=== PATIENT | male | born 1950 | race Caucasian/White ===

== ENCOUNTER → 2018-10-17 | Outpatient (CLI) | payer MEDICARE ==
[~2018-10-17] MED LIST: ASPI81CH PO; Atarax10 MG PO; EZET10; FENO160 PO; FENO48 PO; HYDCHL25; LISHYD2012; METF500 PO; OXYACE5T PO; PRED20 PO; Pravastatin Sod80 MG PO; Sodium Chlorid250 M1 IV
== END | disposition home or self-care (01) ==
LOC: LAB SHORT 07:14 → PLD 07:14
DX: C96.9 Malignant neoplasm of lymphoid, hematopoietic and related tissue, unspecified (principal)
CPT/HCPCS: 88173

== ENCOUNTER 2018-11-08 10:01 | Day surgery (SDC) | payer MEDICARE ==
[~2018-11-08] VITALS: Ht 177.8 cm; Wt 85.7 kg
[~2018-11-08 10:01] MED LIST changes: -ASPI81CH PO; -Atarax10 MG PO; -FENO160 PO; -FENO48 PO; -METF500 PO; -Pravastatin Sod80 MG PO; -Sodium Chlorid250 M1 IV
[2018-11-08] MEDS ORDERED: FENO48 PO (10:33)
[2018-11-08] MEDS ORDERED: METF500 PO (10:33)
[2018-11-08] MEDS ORDERED: FENO160 PO (10:34)
[2018-11-08] MEDS ORDERED: Pravastatin Sod80 MG PO (10:34)
[2018-11-08] MEDS ORDERED: Atarax10 MG PO (10:35)
--- NOTE | 2018-11-08 13:11 | NUR ---
11/08/18 1311 Virgen [place] C/O 01/17 THROAT PAIN, TAKING SIPS ICE WATER, VOICE CLEAR, RESP UNLABORED, MED C FENTANYL 25 MCG IV. FAMILY AT BEDSIDE
== END 2018-11-08 13:45 | disposition home or self-care (01) ==
LOC: ORSCSDS 10:01
PROVIDERS: Otolaryngology
PROC: 0CBM8ZX Excision of Pharynx, Via Natural or Artificial Opening Endoscopic, Diagnostic (ICD-10-PCS; principal; 2018-11-08 11:15)
DX: C01 Malignant neoplasm of base of tongue (principal); I10 Essential (primary) hypertension; E11.9 Type 2 diabetes mellitus without complications; J44.9 Chronic obstructive pulmonary disease, unspecified; F17.210 Nicotine dependence, cigarettes, uncomplicated; Z79.899 Other long term (current) drug therapy; Z79.82 Long term (current) use of aspirin
CPT/HCPCS: 82947; 88305; 88342; J0171; J1100; J2001; J2250; J2405; J2704; J2710; J3010; J7120

== ENCOUNTER 2018-11-20 06:06 | Day surgery (SDC) | payer MEDICARE ==
[~2018-11-20] VITALS: Ht 177 cm; Wt 84.2 kg
[~2018-11-20 06:06] MED LIST changes: +Atarax10 MG PO; +FENO160 PO; +FENO48 PO; +METF500 PO; +Pravastatin Sod80 MG PO
[2018-11-20] MEDS ORDERED: ASPI81CH PO (06:29)
--- NOTE | 2018-11-20 07:12 | NUR ---
Ambulatory in Day Surgery History, Chart, Medications and Allergies reviewed before start of procedure.Patient confirms NPO status and agrees with scheduled surgery. Surgical site prepped with 2% Chlorhexidine cloth wipe.
--- NOTE | 2018-11-20 07:46 | NUR ---
11/20/[address] HERE TO PROVIDE ANESTHESIA CARE, PLEASE SEE ANESTHESIA RECORD FOR DETAILS. History, Chart, Medications and Allergies reviewed before start of procedure. MONITOR INTACT WITH CONTINUOUS PULSE OXIMETRY AND INTERMITTENT BP. O2 VIA POM INTACT THROUGHOUT SEDATION/PROCEDURE AT [address] FINLEY, END TIDAL CO2 INTACT THROUGHOUT. PER DR FINLEY WE WILL DO A 4% LIDOCAINE NEBULIZER PREPROCEDURALLY.
== END 2018-11-20 23:31 | disposition home or self-care (01) ==
LOC: ORSCMMR 06:06 → ORD 08:45 → ORSCMMR 08:45
PROVIDERS: Surgery
PROC: 0DH63UZ Insertion of Feeding Device into Stomach, Percutaneous Approach (ICD-10-PCS; principal; 2018-11-20 07:30)
DX: C01 Malignant neoplasm of base of tongue (principal); R59.0 Localized enlarged lymph nodes; K21.9 Gastro-esophageal reflux disease without esophagitis; I10 Essential (primary) hypertension; E11.9 Type 2 diabetes mellitus without complications; E78.5 Hyperlipidemia, unspecified; Z79.899 Other long term (current) drug therapy; Z79.82 Long term (current) use of aspirin; F17.210 Nicotine dependence, cigarettes, uncomplicated
CPT/HCPCS: 82947; C1769; J0690; J2704; J3010; J7120

== ENCOUNTER 2019-01-04 01:14 | Day surgery (SDC) | payer MEDICARE ==
[~2019-01-04 01:14] MED LIST changes: +ASPI81CH PO
== END 2019-01-04 18:24 | disposition home or self-care (01) ==
LOC: ATC 01:14
DX: C01 Malignant neoplasm of base of tongue (principal); C77.0 Secondary and unspecified malignant neoplasm of lymph nodes of head, face and neck; I10 Essential (primary) hypertension; K21.9 Gastro-esophageal reflux disease without esophagitis; Z79.899 Other long term (current) drug therapy; Z79.84 Long term (current) use of oral hypoglycemic drugs; Z79.82 Long term (current) use of aspirin; Z87.891 Personal history of nicotine dependence
CPT/HCPCS: 96360; J7030

== ENCOUNTER 2019-01-05 14:54 | Day surgery (SDC) | payer MEDICARE | END 2019-01-05 16:07 | disposition home or self-care (01) | LOC: ATC 14:54 | DX: C01 Malignant neoplasm of base of tongue (principal); C77.0 Secondary and unspecified malignant neoplasm of lymph nodes of head, face and neck; I10 Essential (primary) hypertension; K21.9 Gastro-esophageal reflux disease without esophagitis; Z79.899 Other long term (current) drug therapy; Z79.82 Long term (current) use of aspirin | CPT/HCPCS: 96360; J7030 ==

== ENCOUNTER 2019-01-11 00:32 | Day surgery (SDC) | payer MEDICARE | END 2019-01-11 11:40 | disposition home or self-care (01) | LOC: ATC 00:32 | DX: E86.0 Dehydration (principal); C01 Malignant neoplasm of base of tongue; C77.0 Secondary and unspecified malignant neoplasm of lymph nodes of head, face and neck; I10 Essential (primary) hypertension; K21.9 Gastro-esophageal reflux disease without esophagitis; E78.00 Pure hypercholesterolemia, unspecified; Z87.891 Personal history of nicotine dependence; Z79.899 Other long term (current) drug therapy; Z79.84 Long term (current) use of oral hypoglycemic drugs; Z79.82 Long term (current) use of aspirin | CPT/HCPCS: 96360; J7030 ==

== ENCOUNTER 2019-01-13 08:20 | Day surgery (SDC) | payer MEDICARE ==
[2019-01-13] MEDS ORDERED: Sodium Chlorid250 M1 IV (10:37)
== END 2019-01-13 22:37 | disposition home or self-care (01) ==
LOC: ATC 08:20
DX: E86.0 Dehydration (principal); C01 Malignant neoplasm of base of tongue; C77.0 Secondary and unspecified malignant neoplasm of lymph nodes of head, face and neck; I10 Essential (primary) hypertension; K21.9 Gastro-esophageal reflux disease without esophagitis; Z87.891 Personal history of nicotine dependence; Z79.899 Other long term (current) drug therapy; Z79.82 Long term (current) use of aspirin; Z79.84 Long term (current) use of oral hypoglycemic drugs
CPT/HCPCS: 96360; J7030

== ENCOUNTER → 2019-01-15 | Outpatient (CLI) | payer MEDICARE ==
[~2019-01-15] MED LIST changes: +Sodium Chlorid250 M1 IV
[2019-01-15 09:27] LABS: Appearance, Urine Clear (Clear); Bilirubin, Urine Neg (Neg); Blood, Urine Neg (Neg); Color, Urine Yellow (P-Yellow); Glucose Qualitative, Urine 1+ (Neg); Ketones, Urine Neg (Neg); Leukocyte Esterase, Urine 1+ (Neg); Nitrite, Urine Neg (Neg); Protein, Urine 2+ (Neg); Urobilinogen, Urine NORM (Normal)
[2019-01-15 09:39] LABS: Red Blood Cells, Urine 0-2 /hpf (0-2)
[2019-01-15 09:40] LABS: Bacteria Rare /hpf; Squamous Epithelial Cells Rare /hpf (Few)
== END | disposition home or self-care (01) ==
LOC: LAB SHORT 08:52 → LAB 08:52
PROVIDERS: Radiology Therapeutic Radiology
DX: R30.0 Dysuria (principal)
CPT/HCPCS: 81001; 87086

== ENCOUNTER 2019-01-18 00:29 | Day surgery (SDC) | payer MEDICARE | END 2019-01-18 10:01 | disposition home or self-care (01) | LOC: ATC 00:29 | DX: C01 Malignant neoplasm of base of tongue (principal); C77.0 Secondary and unspecified malignant neoplasm of lymph nodes of head, face and neck; I10 Essential (primary) hypertension; E78.00 Pure hypercholesterolemia, unspecified; K21.9 Gastro-esophageal reflux disease without esophagitis; E86.0 Dehydration; Z79.899 Other long term (current) drug therapy; Z79.82 Long term (current) use of aspirin; Z79.84 Long term (current) use of oral hypoglycemic drugs; Z87.891 Personal history of nicotine dependence | CPT/HCPCS: 96360; J7030 ==

== ENCOUNTER 2019-01-20 09:54 | Day surgery (SDC) | payer MEDICARE ==
--- NOTE | 2019-01-20 11:49 | NUR ---
Pt requests to keep PIV in place. He has an appointment at the cancer center tomorrow for IV hydration. Wrapped with gauze and coban. [place] end caps applied x 2.
== END 2019-01-20 11:28 | disposition home or self-care (01) ==
LOC: ATC 09:54
DX: C01 Malignant neoplasm of base of tongue (principal); C77.0 Secondary and unspecified malignant neoplasm of lymph nodes of head, face and neck; I10 Essential (primary) hypertension; E78.00 Pure hypercholesterolemia, unspecified; K21.9 Gastro-esophageal reflux disease without esophagitis; Z87.891 Personal history of nicotine dependence
CPT/HCPCS: 96360; J7030

== ENCOUNTER 2019-01-25 01:05 | Day surgery (SDC) | payer MEDICARE | END 2019-01-25 14:50 | disposition home or self-care (01) | LOC: ATC 01:05 | DX: C01 Malignant neoplasm of base of tongue (principal); C77.0 Secondary and unspecified malignant neoplasm of lymph nodes of head, face and neck; I10 Essential (primary) hypertension; E78.00 Pure hypercholesterolemia, unspecified; K21.9 Gastro-esophageal reflux disease without esophagitis; Z87.891 Personal history of nicotine dependence; Z79.899 Other long term (current) drug therapy | CPT/HCPCS: 96360; J7030 ==

== ENCOUNTER 2019-01-27 13:25 | Day surgery (SDC) | payer MEDICARE | END 2019-01-27 14:42 | disposition home or self-care (01) | LOC: ATC 13:25 | DX: C01 Malignant neoplasm of base of tongue (principal); C77.0 Secondary and unspecified malignant neoplasm of lymph nodes of head, face and neck; I10 Essential (primary) hypertension; K21.9 Gastro-esophageal reflux disease without esophagitis; Z87.891 Personal history of nicotine dependence; Z79.899 Other long term (current) drug therapy; Z79.82 Long term (current) use of aspirin; Z79.84 Long term (current) use of oral hypoglycemic drugs | CPT/HCPCS: 96360; J7030 ==

== ENCOUNTER 2019-02-01 00:25 | Day surgery (SDC) | payer MEDICARE | END 2019-02-01 12:05 | disposition home or self-care (01) | LOC: ATC 00:25 | DX: E86.0 Dehydration (principal); C01 Malignant neoplasm of base of tongue; C77.0 Secondary and unspecified malignant neoplasm of lymph nodes of head, face and neck | CPT/HCPCS: 96360; J7030 ==

== ENCOUNTER 2019-02-03 00:08 | Day surgery (SDC) | payer MEDICARE | END 2019-02-03 12:06 | disposition home or self-care (01) | LOC: ATC 00:08 | DX: C01 Malignant neoplasm of base of tongue (principal); C77.0 Secondary and unspecified malignant neoplasm of lymph nodes of head, face and neck; I10 Essential (primary) hypertension; E78.00 Pure hypercholesterolemia, unspecified; K21.9 Gastro-esophageal reflux disease without esophagitis; Z87.891 Personal history of nicotine dependence | CPT/HCPCS: 96360; J7030 ==

== ENCOUNTER 2019-02-08 00:27 | Day surgery (SDC) | payer MEDICARE | END 2019-02-08 11:26 | disposition home or self-care (01) | LOC: ATC 00:27 | DX: E86.0 Dehydration (principal); C77.0 Secondary and unspecified malignant neoplasm of lymph nodes of head, face and neck; C01 Malignant neoplasm of base of tongue; I10 Essential (primary) hypertension; E78.00 Pure hypercholesterolemia, unspecified; K21.9 Gastro-esophageal reflux disease without esophagitis; Z87.891 Personal history of nicotine dependence; Z79.899 Other long term (current) drug therapy; Z79.82 Long term (current) use of aspirin | CPT/HCPCS: 96360; J7030 ==

== ENCOUNTER 2019-02-15 00:52 | Day surgery (SDC) | payer MEDICARE ==
--- NOTE | 2019-02-15 11:49 | NUR ---
WRAPPED WITH 2X2S AND COBAN. PT TO RETURN OVER THE WEEKEND FOR MORE IV FLUIDS.
== END 2019-02-15 11:47 | disposition home or self-care (01) ==
LOC: ATC 00:52
DX: C01 Malignant neoplasm of base of tongue (principal); C77.0 Secondary and unspecified malignant neoplasm of lymph nodes of head, face and neck; I10 Essential (primary) hypertension; E78.00 Pure hypercholesterolemia, unspecified; Z87.891 Personal history of nicotine dependence; Z79.82 Long term (current) use of aspirin
CPT/HCPCS: J7030

== ENCOUNTER 2019-02-22 00:08 | Day surgery (SDC) | payer MEDICARE | END 2019-02-22 11:23 | disposition home or self-care (01) | LOC: ATC 00:08 | DX: C01 Malignant neoplasm of base of tongue (principal); C77.0 Secondary and unspecified malignant neoplasm of lymph nodes of head, face and neck; E86.0 Dehydration; I10 Essential (primary) hypertension; E78.00 Pure hypercholesterolemia, unspecified; G89.29 Other chronic pain; M54.5 Low back pain; K21.9 Gastro-esophageal reflux disease without esophagitis; Z87.891 Personal history of nicotine dependence; Z79.82 Long term (current) use of aspirin; Z79.84 Long term (current) use of oral hypoglycemic drugs; Z79.899 Other long term (current) drug therapy | CPT/HCPCS: 96360; J7030 ==

== ENCOUNTER 2019-02-24 15:00 | Day surgery (SDC) | payer MEDICARE | END 2019-02-25 22:53 | disposition home or self-care (01) | LOC: ATC 15:00 | DX: C01 Malignant neoplasm of base of tongue (principal); C77.0 Secondary and unspecified malignant neoplasm of lymph nodes of head, face and neck; E86.0 Dehydration; I10 Essential (primary) hypertension; E78.00 Pure hypercholesterolemia, unspecified; G89.29 Other chronic pain; M54.9 Dorsalgia, unspecified; K21.9 Gastro-esophageal reflux disease without esophagitis; Z87.891 Personal history of nicotine dependence; Z79.82 Long term (current) use of aspirin; Z79.84 Long term (current) use of oral hypoglycemic drugs; Z79.899 Other long term (current) drug therapy | CPT/HCPCS: 96360; J7030 ==

== ENCOUNTER 2019-03-03 00:35 | Day surgery (SDC) | payer MEDICARE ==
--- NOTE | 2019-03-03 15:49 | NUR ---
PT DID NOT ARRIVE FOR HIS 1000 SCHEDULED APPT
== END 2019-03-03 23:00 | disposition home or self-care (01) ==
LOC: ATC 00:35
DX: C01 Malignant neoplasm of base of tongue (principal); C77.0 Secondary and unspecified malignant neoplasm of lymph nodes of head, face and neck; E11.9 Type 2 diabetes mellitus without complications; I10 Essential (primary) hypertension; G89.29 Other chronic pain; M54.5 Low back pain; F41.9 Anxiety disorder, unspecified; K21.9 Gastro-esophageal reflux disease without esophagitis; E78.5 Hyperlipidemia, unspecified; Z79.82 Long term (current) use of aspirin; Z79.84 Long term (current) use of oral hypoglycemic drugs; Z79.899 Other long term (current) drug therapy
CPT/HCPCS: J7030

== ENCOUNTER 2019-05-20 09:48 | Inpatient (IN) | payer MEDICARE ==
[~2019-05-20] VITALS: Ht 177.8 cm; Wt 78.4 kg
[2019-05-20 11:34] LABS: BASOPHILS ABSOLUTE AUTO 0.03 K/mm3 (0.00-0.23); BASOPHILS PERCENT AUTO 0 % (0-2); EOSINOPHILS ABSOLUTE AUTO 0.02 K/mm3 (0.00-0.68); EOSINOPHILS PERCENT AUTO 0 % (0-6); Hemoglobin 11.3 g/dL (13.5-17.5); IMMATURE GRAN PERCENT AUTO 1 % (0-1); LYMPHOCYTES ABSOLUTE AUTO 0.28 K/mm3 (0.84-5.20); LYMPHOCYTES PERCENT AUTO 2 % (21-46); MONOCYTES ABSOLUTE AUTO 0.98 K/mm3 (0.16-1.47); MONOCYTES PERCENT AUTO 6 % (4-13); Mean Corpuscular HGB 29.4 pg (26.0-34.0); Mean Corpuscular HGB Conc 33.2 g/dL (31.5-36.5); Mean Corpuscular Volume 89 fL (80-100); Mean Platelet Volume 9.8 fL (9.1-12.4); NEUTROPHILS ABSOLUTE AUTO 16.25 K/mm3 (1.96-9.15); NEUTROPHILS PERCENT AUTO 92 % (41-73); Platelet Count 187 K/mm3 (150-400); RDW Coefficient Variation 12.6 % (11.7-14.2); RDW Standard Deviation 41.2 fL (35.1-46.3); Red Blood Cell Count 3.84 M/mm3 (4.30-5.90); White Blood Cell Count 17.66 K/mm3 (4.00-11.30)
[2019-05-20 11:55] LABS: Alanine Aminotransfer (ALT/SGP 21 U/L (12-78); Albumin, Blood 3.2 g/dL (3.4-5.0); Albumin/Globulin Ratio 0.7 (0.8-1.8); Alk Phos 87 U/L (50-136); Anion Gap 7 mmol/L (6-16); Aspartate Aminotrans (AST/SGOT 15 U/L (12-37); Bilirubin, Total 0.5 mg/dL (0.1-1.0); Blood Urea Nitrogen 26 mg/dL (8-24); Bun/Creatinine Ratio 28.5 (12.0-20.0); CO2, Blood 31 mmol/L (21-32); Calcium, Blood 9.8 mg/dL (8.5-10.1); Chloride, Blood 91 mmol/L (98-108); Creatinine, Blood 0.91 mg/dL (0.60-1.20); Globulin, Blood 4.3 g/dL (2.2-4.0); Glomerular Filtration Rate >60 (60-); Glucose, Blood 197 mg/dL (70-99); Potassium, Blood 3.9 mmol/L (3.5-5.5); Sodium, Blood 129 mmol/L (136-145); Total Protein, Blood 7.5 g/dL (6.4-8.2); Troponin I <0.015 ng/mL (0.000-0.040)
[2019-05-20 14:48] LABS: Source, Urine Clean Catch
[2019-05-20 14:51] LABS: Appearance, Urine Clear (Clear); Bilirubin, Urine Neg (Neg); Blood, Urine 5+ (Neg); Glucose Qualitative, Urine 2+ (Neg); Ketones, Urine Neg (Neg); Leukocyte Esterase, Urine 1+ (Neg); Nitrite, Urine Pos (Neg); Protein, Urine 2+ (Neg); Urobilinogen, Urine 1+ (Normal)
[2019-05-20 14:52] LABS: Color, Urine Orange (P-Yellow)
[2019-05-20 14:58] LABS: Bacteria Few /hpf; Red Blood Cells, Urine TNTC /hpf (0-2); Squamous Epithelial Cells Few /hpf (Few)
[2019-05-20] MEDS ORDERED: Endocet 7.5-321 EACH PT (16:38)
[2019-05-20] MEDS ORDERED: PILOCARPINE HCL PT (16:38)
--- NOTE | 2019-05-20 19:12 | NUR ---
Patient gave permission for this vice president of nursing to care for him on 05/21/2019.
--- NOTE | 2019-05-20 19:36 | NUR ---
PT ARRIVED TO THE UNIT VIA GURNEY FROM THE ER. PT AND FAMILY ORIENTATED TO THE ROOM. PT DENIES ANY NEEDS AT THIS TIME. PEG TUBE FLUSHING WELL.
[2019-05-21 05:08] LABS: BASOPHILS ABSOLUTE AUTO 0.01 K/mm3 (0.00-0.23); BASOPHILS PERCENT AUTO 0 % (0-2); EOSINOPHILS PERCENT AUTO 0 % (0-6); Hematocrit 31.1 % (37.0-53.0); Hemoglobin 10.2 g/dL (13.5-17.5); IMMATURE GRAN ABSOLUTE AUTO 0.09 K/mm3 (0.00-0.10); IMMATURE GRAN PERCENT AUTO 1 % (0-1); LYMPHOCYTES ABSOLUTE AUTO 0.27 K/mm3 (0.84-5.20); LYMPHOCYTES PERCENT AUTO 2 % (21-46); MONOCYTES ABSOLUTE AUTO 0.42 K/mm3 (0.16-1.47); MONOCYTES PERCENT AUTO 3 % (4-13); Mean Corpuscular HGB 29.4 pg (26.0-34.0); Mean Corpuscular HGB Conc 32.8 g/dL (31.5-36.5); Mean Corpuscular Volume 90 fL (80-100); NEUTROPHILS ABSOLUTE AUTO 14.92 K/mm3 (1.96-9.15); NEUTROPHILS PERCENT AUTO 95 % (41-73); Platelet Count 184 K/mm3 (150-400); RDW Coefficient Variation 12.6 % (11.7-14.2); RDW Standard Deviation 41.2 fL (35.1-46.3); Red Blood Cell Count 3.47 M/mm3 (4.30-5.90); White Blood Cell Count 15.71 K/mm3 (4.00-11.30)
[2019-05-21 05:53] LABS: Alanine Aminotransfer (ALT/SGP 24 U/L (12-78); Albumin, Blood 2.7 g/dL (3.4-5.0); Albumin/Globulin Ratio 0.6 (0.8-1.8); Alk Phos 99 U/L (50-136); Anion Gap 8 mmol/L (6-16); Aspartate Aminotrans (AST/SGOT 16 U/L (12-37); Bilirubin, Total 0.4 mg/dL (0.1-1.0); Blood Urea Nitrogen 19 mg/dL (8-24); CO2, Blood 27 mmol/L (21-32); Calcium, Blood 9.5 mg/dL (8.5-10.1); Chloride, Blood 97 mmol/L (98-108); Creatinine, Blood 0.68 mg/dL (0.60-1.20); Globulin, Blood 4.2 g/dL (2.2-4.0); Glomerular Filtration Rate >60 (60-); Glucose, Blood 130 mg/dL (70-99); Potassium, Blood 4.1 mmol/L (3.5-5.5); Sodium, Blood 132 mmol/L (136-145); Total Protein, Blood 6.9 g/dL (6.4-8.2)
--- NOTE | 2019-05-21 06:01 | NUR ---
SHIFT SUMMARY AOX4. DENIES N/V OR DYSPNEA. REPORTS 6-8 PAIN IN LEFT CHEEK/JAW, MEDICATED 1X W/TORODOL & 2X W/5 MG MORPHINE. STATES RELIEF, PAIN DECREASES TO 5/10. L CHEEK/EAR LOBE IS SWOLLEN, RED, TENDER & HOT TO TOUCH. NS RUNNING @125ML/HR. CONTINENT & USES URINAL FREQUENTLY T/O NIGHT. HAS BEEN NPO EXCEPT ICE CHIPS PER ORDERS. CALL LIGHT IN REACH. WCTM.
--- NOTE | 2019-05-21 11:06 | NUR ---
morning meds maria de jesus late, waiting on pharmacy
[2019-05-21 13:25] LABS: Source, Urine Voided
[2019-05-21 13:29] LABS: Bilirubin, Urine Neg (Neg); Blood, Urine 2+ (Neg); Glucose Qualitative, Urine 1+ (Neg); Ketones, Urine Neg (Neg); Leukocyte Esterase, Urine Neg (Neg); Nitrite, Urine Neg (Neg); Protein, Urine 2+ (Neg); Urobilinogen, Urine NORM (Normal)
[2019-05-21 13:55] LABS: Appearance, Urine Clear (Clear); Color, Urine Yellow (P-Yellow)
[2019-05-21 13:57] LABS: Bacteria Few /hpf; Squamous Epithelial Cells Not Seen /hpf (Few)
--- NOTE | 2019-05-21 14:40 | NUR ---
Permission given by patient on 05/21/2019 to Angie MORGAN to assist with care on 05/22/2019.
--- NOTE | 2019-05-21 17:42 | NUR ---
SUMMARY PT SITTING UP IN BED WATCHING TV, PT HAS BEEN UP IN THE HALLS WITH PT/OT, PT WORKED WITH SPEECH, BARIUM SWALLOW DONE, PT IS STRICT NPO, DIETARY STARTED BOLUS FEEDS THROUGH PEG TUBE, PT ADMINISTERED HIS OWN BOLUS FEED WITH SUPERVISION, HE SARAH WELL, FAMILY AND FRIENDS HAVE BEEN IN TO VISIT, PT MED PER [facility] FOR PAIN, VSS, WILL CONT TO MONITOR
--- NOTE | 2019-05-21 17:44 | NUR ---
CONSULT CALL WAS PLACED TO DR HARDY'S OFFICE PER THE PT REQUEST, TO MAKE SURE HE KNEW OF THE CONSULT AND WOULD BE SEEING THE PT, THE OFFICE STATED THAT HE DID IN FACT KNOW ABOUT THE CONSULT
--- NOTE | 2019-05-22 04:16 | NUR ---
SHIFT SUMMARY ADMITTED FOR ACUTE LEFT SIDE PAROTITIS. FULL CODE. A&O X4, RA, STANDBY ASSIST TO INDEPENDENT IN ROOM. PEG TUBE FOR BOLUS FEEDINGS IN PLACE. PT IS NPO. NS IS INFUSING @ 125 ML/HR CONTINUOUS. HOPEFUL FOR DISCHARGE TODAY, HOWEVER HE HAS REQUIRED SEVERAL IV PAIN MEDICATIONS THIS SHIFT WHICH CONCERNS ME FOR DISCHARGE. HIS PAIN IS NOT WELL CONTROLLED. HE STATES HE FEELS HIS PAIN AND SWELLING HAS WORSENED. HX: TONGUE/THROAT CA W/CHEMO TX, FALLS, HTN, GERD.
[2019-05-22 05:04] LABS: BASOPHILS ABSOLUTE AUTO 0.02 K/mm3 (0.00-0.23); BASOPHILS PERCENT AUTO 0 % (0-2); EOSINOPHILS ABSOLUTE AUTO 0.03 K/mm3 (0.00-0.68); EOSINOPHILS PERCENT AUTO 0 % (0-6); Hematocrit 35.6 % (37.0-53.0); Hemoglobin 11.5 g/dL (13.5-17.5); IMMATURE GRAN ABSOLUTE AUTO 0.08 K/mm3 (0.00-0.10); IMMATURE GRAN PERCENT AUTO 1 % (0-1); LYMPHOCYTES ABSOLUTE AUTO 0.28 K/mm3 (0.84-5.20); LYMPHOCYTES PERCENT AUTO 2 % (21-46); MONOCYTES ABSOLUTE AUTO 0.85 K/mm3 (0.16-1.47); MONOCYTES PERCENT AUTO 7 % (4-13); Mean Corpuscular HGB 28.5 pg (26.0-34.0); Mean Corpuscular HGB Conc 32.3 g/dL (31.5-36.5); Mean Corpuscular Volume 88 fL (80-100); Mean Platelet Volume 9.2 fL (9.1-12.4); NEUTROPHILS ABSOLUTE AUTO 11.64 K/mm3 (1.96-9.15); NEUTROPHILS PERCENT AUTO 90 % (41-73); Platelet Count 223 K/mm3 (150-400); RDW Coefficient Variation 12.5 % (11.7-14.2); RDW Standard Deviation 40.8 fL (35.1-46.3); Red Blood Cell Count 4.03 M/mm3 (4.30-5.90)
[2019-05-22 05:27] LABS: Magnesium, Blood 1.7 mg/dL (1.6-2.4); Phosphorus, Blood 2.3 mg/dL (2.5-4.9)
--- NOTE | 2019-05-22 18:18 | NUR ---
SUMMARY PT RESTING IN BED WATCHING TV, PT HAS BEEN UP IN THE HALLS WITH PT/OT, PT HAS TAKEN A SHOWER, FAMILY HAS BEEN IN TO VISIT, PT MED PER EM[facility] FOR PAIN, PT GIVES HIMSELF HIS OWN TUBE FEEDS, SARAH WELL, VSS, NO ACUTE CHANGES, WILL CONT TO MONITOR
--- NOTE | 2019-05-22 20:41 | NUR ---
NAYELY WAS SITTING IN BED WATCHING TV. IV INFUSING NS WITH NO PROBLEMS. STATES PAIN IS 8/10 IN THE LEFT SIDE OF THE JAW. SWELLING STILL NOTED IN THE UPPER CHECK/JAW LINE AREA. HE IS ABLE TO FLUSH PEG TUBE HIMSELF WITH WATER. FILLED UP HIS BOTTLE WITH WATER FOR HIM TO DO SO. GAVE HIM SOME PADS TO LAY UNDERNEATH. HE HAS MOUTH SWABS WELL. MEDS ADMINISTERED, GAVE PAIN MEDS. NO SKIN ISSUES NOTED, PEG TUBE DRESSING CLEAN AND INTACT. LUNG SOUNDS CLEAR THROUGOUT. HR REGULAR. NO NAUSEA OR CHEST PAIN. CALL LIGHT IN REACH. WILL CONTINUE TO MONITOR.
[2019-05-23 04:49] LABS: Hematocrit 32.5 % (37.0-53.0); Hemoglobin 10.5 g/dL (13.5-17.5); Mean Corpuscular HGB Conc 32.3 g/dL (31.5-36.5); Mean Corpuscular Volume 90 fL (80-100); Mean Platelet Volume 9.5 fL (9.1-12.4); Platelet Count 215 K/mm3 (150-400); RDW Coefficient Variation 12.5 % (11.7-14.2); RDW Standard Deviation 41.1 fL (35.1-46.3); Red Blood Cell Count 3.62 M/mm3 (4.30-5.90); White Blood Cell Count 10.04 K/mm3 (4.00-11.30)
[2019-05-23 05:12] LABS: Percent Saturation 32.1 % (20.0-50.0)
[2019-05-23 05:14] LABS: Anion Gap 6 mmol/L (6-16); Blood Urea Nitrogen 27 mg/dL (8-24); Bun/Creatinine Ratio 50.6 (12.0-20.0); CO2, Blood 27 mmol/L (21-32); Calcium, Blood 9.2 mg/dL (8.5-10.1); Chloride, Blood 99 mmol/L (98-108); Creatinine, Blood 0.53 mg/dL (0.60-1.20); Glomerular Filtration Rate >60 (60-); Glucose, Blood 171 mg/dL (70-99); Phosphorus, Blood 2.9 mg/dL (2.5-4.9); Sodium, Blood 132 mmol/L (136-145)
--- NOTE | 2019-05-23 05:24 | NUR ---
SHIFT SUMMARY: NAYELY HAS HAD A BETTER NIGHT. HIS PAIN HAS REMAINED BETTER CONTROLLED, WITH USE OF FENTANYL 100MCQ. HE WAS ABLE TO SLEEP 90% OF THE SHIFT, ONLY TO BE AWAKENED FOR STAFF INTERVENTIONS. IV HAS BEEN INFUSING WELL WITH NO PROBLEMS. PEG TUBE WAS FLUSHED BEFORE HE WENT TO BED. HE IS ABLE TO STAND UP AND URINATE WITH USE OF URINAL INDEPENDENTLY. LEFT SIDE OF THE FACE IS STILL SWOLLEN. NO ACUTE CHANGES OCCURRED THIS SHIFT. WILL REPORT TO DAY SHIFT.
--- NOTE | 2019-05-23 15:30 | NUR ---
SPOKE TO DR HERNANDEZ ABOUT BOWEL MEDICATIONS FOR THE PT. PT USED A SUPPOSITIRY (ASSUMED BISACODYL THAT IS WHAT HE HAS IN THE EMAR). PER THE PT HE HAS HAD THE SUPPOSITORY FOR A WHILE AND DECIDED TO USE IT THIS AFTERNOON.
--- NOTE | 2019-05-23 19:03 | NUR ---
SHIFT SUMMARY- PT STARTED LACTULOSE TODAY FOR BOWEL CARE SENNA TO START TONIGHT. PT DECLINED A THIRD FEEDING TODAY BUT CONSUMED 4 CARTONS OF THE FEEDING FORMULA. PT ALERT AND ORIENTED AND DOES HIS OWN TUBE FEEDINGS WITH SET UP ASSISTANCE FROM STAFF. PT MEDICATED FOR PAIN WITH PO DILAUDID JUST PRIOR TO SHIFT CHANGE. PT PAIN SEEMS MORE WELL MANAGED THIS EVENING THAN THIS MORNING. PT STATED HE DOESNT THINK THOSE PILLS (REFERRING TO DILAUDID) DO ANYTHING. BUT HIS PAIN SEEMS MORE WELL MANAGED.
--- NOTE | 2019-05-24 04:35 | NUR ---
SHIFT SUMMARY ADMITTED WITH ACUTE PAROTITIS. FULL CODE. PEG TUBE IN PLACE, TUBE FEEDINGS TOLERATED WELL. NPO. SUCCESSFUL BOWEL CARE - 2 BM'S LAST NIGHT. NS INFUSING @ 125 ML/HR. RA, A&O X4, CHEMSTICKS Q 6 HRS. IV ANTIBIOTICS ARE SCHEDULED. PLAN IS FOR HOPEFUL DC HOME TODAY TO . INDEPENDENT IN ROOM WHEN IV FLUIDS ARE NOT INFUSING. ORAL PAIN MEDICATION Q4 IN EM[facility]. HX: HEAD/NECK CA, HTN, GERD
--- NOTE | 2019-05-24 06:11 | NUR ---
PT STATUS PT PREFERS NOT TO BE AWOKEN FOR HIS OMEPRAZOLE OR TUBE FEEDING @ 6 AM, HE WOULD PREFER TO WAIT FOR THESE. I WILL INFORM THE DAY NURSE.
--- NOTE | 2019-05-24 08:07 | NUR ---
SPOKE TO DR HERNANDEZ LATE ENTRY D/T PT STRICT NPO STATUS ORDER TO HOLD MOUTHWASH RECIEVED DC'D IN ORDERMANAGEMENT THIS MORNING, YESTERDAYS DOSE HELD PER DR HERNANDEZ.
[2019-05-24] MEDS ORDERED: ACET325UDC PO (12:14)
[2019-05-24] MEDS ORDERED: AMLO5 PT (12:14)
[2019-05-24] MEDS ORDERED: Biotin10 MG PT (12:14)
[2019-05-24] MEDS ORDERED: SENNA PLUS 8.61 EACH PT (12:15)
[2019-05-24] MEDS ORDERED: Vsl#3 Capsule1 EACH PT (12:15)
[2019-05-24] MEDS ORDERED: BIOTENE MOIST44.3 ML PO (12:16)
[2019-05-24] MEDS ORDERED: Prinivil10 MG PT (12:16)
[2019-05-24] MEDS ORDERED: TAMS.4ER PT (12:16)
[2019-05-24] MEDS ORDERED: Zegerid 20 MG1 EAC1 PT (12:17)
[2019-05-24] MEDS ORDERED: TEMA15 PO (12:17)
[2019-05-24] MEDS ORDERED: CLIN300 PO (12:18)
--- NOTE | 2019-05-24 15:30 | NUR ---
DISCHARGE NOTE- PT WAS GIVEN VERBAL AND WRITTEN DISCHARGE INSTRUCTIONS AND ACKNOWLEDGED UNDERSTANDING OF THEM, IV DC'D PRIOR TO DISCHARGE. PT DECLINED A SECOND TUBE FEEDING STATING HE WILL DO IT WHEN HE GETS HOME. SPOKE TO PT ABOUT GOING HOME WITH HIS PREVIOUS PAIN MEDICATION AND HE STATED THAT SHOULD WORK OK HE IS FEELING BETTER NOW. PT MEDS WERE FAXED TO [facility] PER HIS REQUEST. SPOKE TO PHARMACY STAFF MEMBER TO CLARIFY ORDERS SO THEY CONFIRMED HAVE THE MED REC THAT WAS FAXED. PT HAD NO FURTHER QUESTIONS AT THE TIME OF DISCHARGE. PT ESCORTED OUT VIA WC BY THE ASSISTANT SALES CENTER MANAGER.
== END 2019-05-24 13:44 | disposition home or self-care (01) | DRG 155 ==
LOC: ER 09:48 → MEDS 16:30 → ENPENDDIS 05-24 10:00 → EDPENDDIS 05-24 10:00 → MEDS 05-24 13:44
PROVIDERS: Internal Medicine; Physician Assistant; ADMIT Internal Medicine
DX: K11.21 Acute sialoadenitis (principal); I87.1 Compression of vein; D64.9 Anemia, unspecified; E83.39 Other disorders of phosphorus metabolism; R31.9 Hematuria, unspecified; I12.9 Hypertensive chronic kidney disease with stage 1 through stage 4 chronic kidney disease, or unspecified chronic kidney disease; N18.9 Chronic kidney disease, unspecified; Z91.81 History of falling; Z93.1 Gastrostomy status; Z85.89 Personal history of malignant neoplasm of other organs and systems; Z85.810 Personal history of malignant neoplasm of tongue; Z92.21 Personal history of antineoplastic chemotherapy; Z92.3 Personal history of irradiation; Z88.2 Allergy status to sulfonamides; Z87.891 Personal history of nicotine dependence; Z79.82 Long term (current) use of aspirin
CPT/HCPCS: 36415; 70450; 70491; 74230; 80048; 80053; 81001; 82728; 82947; 83540; 83550; 83605; 83735; 84100; 84443; 84484; 85025; 85027; 87040; 87086; 92526; 92610; 92611; 93005; 93010; 96361; 96365-59; 96375-59; 96376; 97116; 97161; 97530; 99285-25; A9270-GY; G0103; J0360; J1100; J1170; J1650; J1885; J2270; J2405; J3010; J7030; Q9967

== ENCOUNTER 2021-05-05 15:36 | Emergency (ER) | payer MEDICARE ==
[~2021-05-05] VITALS: Ht 177.8 cm; Wt 78.9 kg
[~2021-05-05 15:36] MED LIST changes: +ACET325UDC PO; +AMLO5 PT; +BIOTENE MOIST44.3 ML PO; +Biotin10 MG PT; +CLIN300 PO; +Endocet 7.5-321 EACH PT; +PILOCARPINE HCL PT; +Prinivil10 MG PT; +SENNA PLUS 8.61 EACH PT; +TAMS.4ER PT; +TEMA15 PO; +Vsl#3 Capsule1 EACH PT; +Zegerid 20 MG1 EAC1 PT
[2021-05-05] MEDS ORDERED: Percocet 5-3251 EACH PO (18:18)
[2021-05-05] MEDS ORDERED: CEPH500 PO (18:18)
== END 2021-05-05 18:43 | disposition home or self-care (01) ==
LOC: ER 15:36
DX: S62.521A Displaced fracture of distal phalanx of right thumb, initial encounter for closed fracture (principal); S62.522A Displaced fracture of distal phalanx of left thumb, initial encounter for closed fracture; I10 Essential (primary) hypertension; K21.9 Gastro-esophageal reflux disease without esophagitis; Z88.2 Allergy status to sulfonamides; Z79.899 Other long term (current) drug therapy; W27.0XXA Contact with workbench tool, initial encounter
CPT/HCPCS: 12001; 29130; 73140; 99283-25; A9270

== ENCOUNTER 2021-08-12 12:04 | Day surgery (SDC) | payer MEDICARE ==
[~2021-08-12] VITALS: Ht 177.8 cm; Wt 74.7 kg
[~2021-08-12 12:04] MED LIST changes: +CEPH500 PO; +Percocet 5-3251 EACH PO
[2021-08-12] MEDS ORDERED: Percocet 5-3251 EACH (13:07)
== END 2021-08-12 14:20 | disposition home or self-care (01) ==
LOC: ORSCSDS 12:04
PROVIDERS: Surgery
PROC: 0DJD8ZZ Inspection of Lower Intestinal Tract, Via Natural or Artificial Opening Endoscopic (ICD-10-PCS; principal; 2021-08-12 13:30)
DX: K62.5 Hemorrhage of anus and rectum (principal); K57.30 Diverticulosis of large intestine without perforation or abscess without bleeding; Z85.810 Personal history of malignant neoplasm of tongue; E11.9 Type 2 diabetes mellitus without complications; E78.2 Mixed hyperlipidemia; I10 Essential (primary) hypertension; K21.9 Gastro-esophageal reflux disease without esophagitis; E78.00 Pure hypercholesterolemia, unspecified; Z87.891 Personal history of nicotine dependence; Z79.899 Other long term (current) drug therapy
CPT/HCPCS: J2704; J7120

== ENCOUNTER 2022-09-06 11:59 | Emergency (ER) | payer MEDICARE ==
[~2022-09-06] VITALS: Ht 182.9 cm; Wt 74.8 kg
[~2022-09-06 11:59] MED LIST changes: +Percocet 5-3251 EACH
[2022-09-06 12:52] LABS: BASOPHILS ABSOLUTE AUTO 0.05 K/mm3 (0.00-0.23); BASOPHILS PERCENT AUTO 1 % (0-2); EOSINOPHILS ABSOLUTE AUTO 0.06 K/mm3 (0.00-0.68); EOSINOPHILS PERCENT AUTO 1 % (0-6); Hematocrit 41.7 % (37.0-53.0); Hemoglobin 13.7 g/dL (13.5-17.5); IMMATURE GRAN ABSOLUTE AUTO 0.05 K/mm3 (0.00-0.10); IMMATURE GRAN PERCENT AUTO 1 % (0-1); LYMPHOCYTES ABSOLUTE AUTO 0.44 K/mm3 (0.84-5.20); LYMPHOCYTES PERCENT AUTO 5 % (21-46); MONOCYTES ABSOLUTE AUTO 0.35 K/mm3 (0.16-1.47); MONOCYTES PERCENT AUTO 4 % (4-13); Mean Corpuscular HGB 28.5 pg (26.0-34.0); Mean Corpuscular HGB Conc 32.9 g/dL (31.5-36.5); Mean Corpuscular Volume 87 fL (80-100); Mean Platelet Volume 9.1 fL (9.1-12.4); NEUTROPHILS ABSOLUTE AUTO 7.39 K/mm3 (1.96-9.15); NEUTROPHILS PERCENT AUTO 89 % (41-73); Platelet Count 393 K/mm3 (150-400); RDW Coefficient Variation 14.1 % (11.7-14.2); RDW Standard Deviation 45.3 fL (35.1-46.3); Red Blood Cell Count 4.81 M/mm3 (4.30-5.90); White Blood Cell Count 8.34 K/mm3 (4.00-11.30)
[2022-09-06 13:00] LABS: Albumin, Blood 2.8 g/dL (3.4-5.0); Albumin/Globulin Ratio 0.7 (0.8-1.8); Bilirubin, Total 0.5 mg/dL (0.1-1.0); Bun/Creatinine Ratio 21.3 (12.0-20.0); Calcium, Blood 9.3 mg/dL (8.5-10.1); Creatinine, Blood 1.08 mg/dL (0.60-1.20); Globulin, Blood 3.8 g/dL (2.2-4.0); Potassium, Blood 3.3 mmol/L (3.5-5.5); Total Protein, Blood 6.6 g/dL (6.4-8.2)
[2022-09-06] MEDS ORDERED: IBUP800 PO (17:30)
[2022-09-06] MEDS ORDERED: AMOCLA875 PO (17:30)
[2022-09-06] MEDS ORDERED: SULTRIDS PO (17:30)
[2022-09-06 17:55] VITALS: BP 166/98
[2022-09-06] MEDS ORDERED: ERYT.5TO LEFTEYE (20:10)
== END 2022-09-06 17:56 | disposition home or self-care (01) ==
LOC: ER 11:59
PROVIDERS: Physician Assistant
DX: L03.213 Periorbital cellulitis (principal); H10.9 Unspecified conjunctivitis; E87.20 Acidosis, unspecified; I10 Essential (primary) hypertension; Z85.21 Personal history of malignant neoplasm of larynx
CPT/HCPCS: 36415; 70487; 80053; 83605; 83735; 85025; J0295; J1885; J3370; J7030; J7050; Q9967